=== PATIENT | female | born 1965 | race Two or more races ===

== ENCOUNTER 2020-08-16 09:31 | Outpatient (CLI) | payer OTHER ==
--- NOTE | 2020-08-17 12:03 | Mammography Report ---
BILATERAL DIGITAL DIAGNOSTIC MAMMOGRAM 3D/2D: 08/16/2020 CLINICAL: Palpable left breast lump. Comparison is made to exams dated: 06/03/2019 mammogram, 09/17/2016 mammogram, and 03/04/2018 mammogra m - [facility]. There are scattered fibroglandular elements in both breasts. There is an oval fat containing fat necrosis with an indistinct margin in the left breast at 6 o'cloc k middle depth. This correlates as palpated. Post-surgical changes are demonstrated bilaterally in the breasts consistent with prior breast reduct ion. This includes a focal of fat necrosis in the posterior medial left breast. No other significant masses, calcifications, or other findings are seen in either breast. IMPRESSION: INCOMPLETE: NEEDS ADDITIONAL IMAGING EVALUATION The oval fat containing fat necrosis in the left breast is consistent with a previous surgery and lik tequila corresponds to patient's palpable abnormality. An ultrasound is recommended in the area of palpa ble abnormality to exclude another mass. Ultrasound will be performed immediately following the current exam. This exam was interpreted at Station ID: [id number]. NOTE: For mammograms, a report in lay terms will be sent to the patient. Approximately 15% of breast malignancies will not be visualized mammographically. In the management of a palpable breast mass, a negative mammogram must not discourage biopsy of a clinically suspicious lesion. Electronically Signed By: Zen Case M.D. ddp/:08/16/2020 11:56:32 ACR BI-RADS Category 0: Incomplete 3340F PARENCHYMAL PATTERN: (A) - The breast(s) demonstrate(s) scattered fibroglandular densities. BI-RADS CATEGORY: (0) - 0 Ultrasound [id number] Immediate follow-up LATERALITY: (B)
--- NOTE | 2020-08-17 12:03 | Ultrasound Report ---
LIMITED ULTRASOUND OF LEFT BREAST: 08/16/2020 CLINICAL: Patient returns for additional imaging over a suspected mass in the left breast. Comparison is made to exam dated: 08/16/2020 mammogram - Merged with [facility]. Color flow and real-time ultrasound of the left breast were performed on the areas of interest. There is a benign 1.5 cm x 0.6 cm x 1.8 cm oval mass in the left breast at 6 o'clock middle depth 8 c m from the nipple. This oval mass is hypoechoic but of mixed echogenicity. This correlates as palpa sade and with mammography findings. Color flow imaging demonstrates that there is no vascularity pres ent. IMPRESSION: BENIGN There is no sonographic evidence of malignancy. The 1.5 cm x 0.6 cm x 1.8 cm oval mass in the left breast is consistent with fat necrosis and is freeman gn. A 1 year screening mammogram is recommended. This exam was interpreted at Station ID: [id number]. Electronically Signed By: Zen jain/issac:08/16/2020 11:59:10 Ultrasound BI-RADS: 2 Benign BI-RADS CATEGORY: (2) - 2 RECOMMENDATION: (ANNUAL) - Recommend routine annual screening mammography. [id number] 1 year screening LATERALITY: (B)
== END 2020-08-16 09:32 | disposition home or self-care (01) ==
LOC: DI 09:31
PROVIDERS: ATTEND Obstetrics & Gynecology
DX: N63.23 Unspecified lump in the left breast, lower outer quadrant (principal)
CPT/HCPCS: 76642; 77066

== ENCOUNTER 2021-01-08 09:14 | Outpatient (CLI) | payer OTHER ==
--- NOTE | 2021-01-08 12:05 | DEXA Report ---
PROCEDURE: Dexa Spine and/or Hip INDICATIONS: ASYMPTOMATIC MENOPAUSAL STATE TECHNIQUE: Dual energy x-ray absorptiometry (DXA) was performed on a [employer] System. Regions measur ed are the AP Spine, femoral neck, and if needed forearm. COMPARISON: None. FINDINGS: Lumbar Spine: Bone Mineral Density 1.119 g/cm/cm,T score -0.5, normal Left Hip: Bone Mineral Density 0.933 g/cm/cm,T score -0.6, normal Left Femoral Neck: Bone Mineral Density 0.853 g/cm/cm, T score -1.3, osteopenia (T score greater or equal to -1.0: NORMAL) (T score from -1.1 to -2.4: OSTEOPENIA) (T score less than or equal to -2.5 to: OSTEOPOROSIS) Impression: 1. Osteopenia raises the patient's 10 year fracture risk.. Patients with diagnosis of osteoporosis or osteopenia should have regular bone mineral density assess ment. For those eligible for Medicare, routine testing is allowed once every 2 years. Testing frequ ency can be increased for patients who have rapidly progressing disease or for those who are receivin g medical therapy to restore bone mass. Reviewed by: Deepika Gusman MD on 01/08/2021 11:04 AM RENÉ Approved by: Deepika Gusman MD on 01/08/2021 11:04 AM [facility] Station ID: [id number]
== END 2021-01-08 09:15 | disposition home or self-care (01) ==
LOC: DI 09:14
PROVIDERS: ATTEND Family Medicine
DX: M85.88 Other specified disorders of bone density and structure, other site (principal); Z78.0 Asymptomatic menopausal state; Z91.81 History of falling

== ENCOUNTER 2022-03-20 17:03 | Outpatient (CLI) | payer OTHER ==
[2022-03-20 20:59] LABS: BASOPHILS % (AUTO) 0.4 %; EOSINOPHILS # (AUTO) 0.1 10^3/uL (0.0-0.7); EOSINOPHILS % (AUTO) 1.1 %; HCT - HEMATOCRIT 41.2 % (37.0-47.0); HGB - HEMOGLOBIN 13.4 g/dL (12.0-16.0); LYMPHOCYTES # (AUTO) 2.6 10^3/uL (1.5-3.5); LYMPHOCYTES % (AUTO) 35.5 %; MEAN CORPUSCULAR HEMOGLOBIN 30.5 pg (27.0-31.0); MEAN CORPUSCULAR HGB CONC 32.5 g/dL (32.0-36.0); MEAN CORPUSCULAR VOLUME 93.6 fL (81.0-99.0); MEAN PLATELET VOLUME 10.5 fL (7.9-10.8); MONOCYTES # (AUTO) 0.5 10^3/uL (0.0-1.0); MONOCYTES % (AUTO) 7.3 %; NEUTROPHILS # (AUTO) 4.1 10^3/uL (1.5-6.6); NEUTROPHILS % (AUTO) 55.6 %; PLT - PLATELET COUNT 300 10^3/uL (130-450); RED CELL DISTRIBUTION WIDTH 13.8 % (12.0-15.0); WHITE BLOOD COUNT 7.3 x10^3/uL (4.8-10.8)
[2022-03-20 21:06] LABS: ALBUMIN 4.1 g/dL (3.2-5.5); ALBUMIN/GLOBULIN RATIO 1.2 (1.0-2.2); BILIRUBIN,TOTAL 0.4 mg/dL (0.2-1.0); CALCIUM 9.2 mg/dL (8.5-10.3); CREATININE 0.7 mg/dL (0.4-1.0); POTASSIUM 4.2 mmol/L (3.5-5.0); TOTAL PROTEIN 7.4 g/dL (6.7-8.2)
== END 2022-03-20 17:04 | disposition home or self-care (01) ==
LOC: LAB.N 17:03
PROVIDERS: ATTEND Psychiatry & Neurology Neurology
DX: G35 Multiple sclerosis (principal)
CPT/HCPCS: 36415; 80053; 85025

== ENCOUNTER 2023-04-06 08:11 | Outpatient (CLI) | payer OTHER ==
--- NOTE | 2023-04-06 09:36 | DEXA Report ---
PROCEDURE: Dexa Spine and/or Hip INDICATIONS: POST MENOPAUSAL TECHNIQUE: Dual energy x-ray absorptiometry (DXA) was performed on a [employer] System. Regions measur ed are the AP Spine, femoral neck, and if needed forearm. COMPARISON: 01/08/2021 FINDINGS: Lumbar Spine: Bone Mineral Density 1.1 to g/cm/cm,T score -0.5. Previously -0.5 Left Femoral Neck: Bone Mineral Density 0.75 g/cm/cm, T score -2. Previously -1.3 Left Hip: Bone Mineral Density 0.94 g/cm/cm,T score -0.5. Previously -0.6 (T score greater or equal to -1.0: NORMAL) (T score from -1.1 to -2.4: OSTEOPENIA) (T score less than or equal to -2.5 to: OSTEOPOROSIS) Impression: By WHO criteria, this patient has low bone density (osteopenia). Left femoral neck bone mineral density has worsened compared to 2020 imaging. Patients with diagnosis of osteoporosis or osteopenia should have regular bone mineral density assess ment. For those eligible for Medicare, routine testing is allowed once every 2 years. Testing frequ ency can be increased for patients who have rapidly progressing disease or for those who are receivin g medical therapy to restore bone mass. Reviewed by: Silvio Pimentel MD on 04/06/2023 9:35 AM PDT Approved by: Silvio Pimentel MD on 04/06/2023 9:35 AM PDT Station ID: [id number]
== END 2023-04-06 08:12 | disposition home or self-care (01) ==
LOC: DI 08:11
PROVIDERS: ATTEND Nurse Practitioner
DX: M85.88 Other specified disorders of bone density and structure, other site (principal); Z78.0 Asymptomatic menopausal state